=== PATIENT | female | born 1955 | race Caucasian/White ===

== ENCOUNTER 2020-02-05 08:00 | Outpatient (CLI) | payer OTHER, SELFPAY ==
--- NOTE | ~2020-02-05 | XR_ITS ---
XR thoracic spine 3V DATE: 02/05/2020 08:34 INDICATION: Neck, back pain, left shoulder pain TECHNIQUE: AP, lateral and swimmer views COMPARISON: None FINDINGS: Diffuse osteopenia. No fracture or dislocation or bone destruction of the thoracic spine. T he thoracic pedicles are intact. No paraspinal soft tissue thickening. IMPRESSION: Osteopenia Reviewed, dictated and finalized at location A. IMPRESSION: Osteopenia
--- NOTE | ~2020-02-05 | XR_ITS ---
XR cervical spine 4-5V DATE: 02/05/2020 08:34 INDICATION: Neck pain, left shoulder pain. No injury. TECHNIQUE: AP, open-mouth, lateral and swimmer views COMPARISON: None FINDINGS: There is straightening of the cervical spine. There is minimal anterolisthesis at C4-5 and C5-6. C1 and C2 are normally aligned and the odontoid process is intact. No fracture or dislocation or lock ed facet or prevertebral soft tissue swelling. Cervical interspaces are relatively well preserved. IMPRESSION: Straightening Minimal anterolisthesis at C4-5 and C5-6 Reviewed, dictated and finalized at location A.
== END 2020-02-05 08:01 | disposition home or self-care (01) ==
LOC: ANHIMG 08:07
PROVIDERS: PCP Family Medicine; Visit Provider Family Medicine
DX: M54.2 Cervicalgia (principal); M25.512 Pain in left shoulder; M85.88 Other specified disorders of bone density and structure, other site; M53.82 Other specified dorsopathies, cervical region; M43.12 Spondylolisthesis, cervical region
CPT/HCPCS: 72050; 72072

== ENCOUNTER 2022-02-26 16:43 | Outpatient (CLI) | payer BC, SELFPAY ==
--- NOTE | ~2022-02-26 | XR_ITS ---
XR foot LT min 3V 02/26/2022 16:56 Indication: Left foot pain Procedure: 4 views left foot Comparison: No prior studies for comparison. Findings: There is anatomic alignment. Normal mineralization. No fracture or traumatic malalignment. Lisfranc joint is intact. No significant soft tissue abnormality. No foreign bodies. Impression: 1: No significant bone or joint abnormality. Reviewed, dictated and finalized at location A. Impression: 1: No significant bone or joint abnormality.
== END 2022-02-26 16:44 | disposition home or self-care (01) ==
PROVIDERS: PCP Family Medicine; Visit Provider Physician Assistant
DX: M79.672 Pain in left foot (principal)
CPT/HCPCS: 73630

== ENCOUNTER 2022-07-07 11:37 | Emergency (ER) | payer BC, SELFPAY ==
--- NOTE | ~2022-07-07 | XR_ITS ---
EXAMINATION: XR chest 2V 07/07/2022 12:13 INDICATION: Cough PROCEDURE: 2 view chest COMPARISON: No prior studies for comparison. FINDINGS: The lungs are clear. The cardiomediastinal silhouette is within normal limits. There are no pleural effusions. There is no pneumothorax suspected. IMPRESSION: 1: NO ACUTE CARDIOPULMONARY DISEASE. Reviewed, dictated and finalized at location A. T PSYCHIATRIST
[2022-07-07 12:01] VITALS: BP 137/80; PULSE 96; RESP 16; TEMP 36.8; O2SAT 95
--- NOTE | 2022-07-07 12:48 | ED.GENADULT ---
HPI - General Adult General Chief complaint: Upper Respiratory Infection Stated complaint: Cough Source: patient Mode of arrival: ambulatory Limitations: no limitations History of Present Illness HPI narrative: Patient presents for evaluation of sick symptoms since Saturday of this week. Symptoms include nonproductive, cough, wheezing, fever, fatigue, sinus congestion, mild exertional dyspnea and headache. No chills, nausea, vomiting. diarrhea. One of her friends with whom she spends time was recently sick. Pt took two COVID tests at home, both of which were negative. She does not smoke. She contacted her PCP and was given tessalon. She is not sure that made considerable difference in her symptoms. No additional complaints or concerns. Related Data Allergies Allergy/AdvReac Type Severity Reaction Status Date / Time naproxen Allergy Intermediate hives Verified 07/07/22 11:59 Review of Systems Review of Systems: CONSTITUTIONAL: Reports fever and fatigue. Denies chills, or sweats. EYES: Denies visual changes, redness, or discharge. ENT: reports sinus congestion. Denies sore throat or otalgia. CARDIOVASCULAR: Denies chest pain, palpitations, or edema. RESPIRATORY: reports nonproductive cough and mild exertional dyspnea. GASTROINTESTINAL: Denies abdominal pain, nausea, vomiting, or diarrhea. GENITOURINARY: Denies dysuria or hematuria. SKIN: Denies rash or itching. MUSCULOSKELETAL: Denies back pain, joint pain, or myalgia. NEUROLOGIC: Reports headache. Denies numbness, dizziness, or weakness. PSYCHIATRIC: Denies anxiety or depression. [facility] Past Medical History Medical History Breast cancer, left Mixed hyperlipidemia Surgical History Surgical History H/O breast reconstruction History of mastectomy left Family History Family History Father Diabetes mellitus, Onset Age: 58 Hypertension, Onset Age: 58 Family history of cardiovascular disease, Onset Age: 58 Sibling Hypertension Patient's brother is in good health Family history of malignant neoplasm Mother Family history of cardiovascular disease, Onset Age: 76 Cerebrovascular accident, Onset Age: 76 Social History Social History Social History: Smoking status: Never smoker Second hand tobacco smoke exposure: No Alcohol intake: never Substance use: never Substance use type: does not use Gender identity (if verbalized by the patient): Female Sexual Orientation (if Verbalized by the Patient): Straight or Heterosexual Exam Narrative: GENERAL: Well-appearing, well-nourished, and in no acute distress. HEAD: Normocephalic, atraumatic. EYES: PERRLA and EOMI. ENT: Nares clear, no rhinorrhea or epistaxis. Mucous membranes moist. Oropharynx without tonsillar hypertrophy exudate or other lesions. Bilateral TMs pearly villanueva nonbulging NECK: Supple. No adenopathy or masses. No carotid bruits or JVD CHEST: Cough present on exam. Rales and wheezing noted bilaterally in posterior lung gtz. HEART: Regular rate and rhythm. No murmur heard. Normal peripheral pulses. ABDOMEN: Soft, nontender, nondistended, normal active bowel sounds. EXTREMITIES: Normal range of motion. No edema. SKIN: Warm, dry, no rash. NEURO: No focal deficits. Alert and oriented x3. PSYCH: Normal mood and affect. Course Course Emergency Course: This is a 67-year-old female presenting for evaluation of sick symptoms. Her chest x-ray was negative. influenza a positive. Will treat with Tamiflu. Also provide her with a script for albuterol and prednisone to help with wheezing. She should follow up outpatient for further evaluation and treatment go to the ER for worsening symptoms. Patient is in agree
== END 2022-07-07 13:09 | disposition home or self-care (01) ==
PROVIDERS: Emergency Provider Nurse Practitioner; PCP Family Medicine
DX: J10.1 Influenza due to other identified influenza virus with other respiratory manifestations (principal); B34.9 Viral infection, unspecified; E78.2 Mixed hyperlipidemia; Z85.3 Personal history of malignant neoplasm of breast; Z90.12 Acquired absence of left breast and nipple
CPT/HCPCS: 71046; 87804; 99213; G0463

== ENCOUNTER → 2022-07-13 14:50 | Outpatient (CLI) | payer BC, SELFPAY ==
--- NOTE | ~2022-07-13 | DEXA_ITS ---
Bone Density Report Name: BG HARP Age: 67 Sex: Female Ethnicity: White Date of : 1955 Indication: postmenopausal; screening for osteoporosis; Referring Provider: Jr, Dayana Abbott Study: Bone densitometry was performed. Exam Date: July 13, 2022 Accession number: [id number] Bone Density: Region BMD T-score Z-score Classification AP Spine (L1-L4) 0.956 -0.8 1.2 Normal Femoral Neck (Left) 0.710 -1.3 0.4 Osteopenia Total Hip (Left) 0.866 -0.6 0.8 Normal Femoral Neck (Right) 0.649 -1.8 -0.1 Osteopenia Total Hip (Right) 0.837 -0.9 0.5 Normal Total Hip Mean 0.852 -0.8 0.7 Normal World Health Organization criteria for BMD impression classify patients as: Normal (T-score at or above -1.0), Osteopenia (T-score between -1.0 and -2.5), or Osteoporosis (T-score at or below -2.5). 10-year Fracture Risk(1): Major Osteoporotic Fracture 10% Hip Fracture 1.5% Reported Risk Factors: [place] (), Neck BMD=0.649, BMI=25.3 (1) FRAX(R) Version 3.08. Fracture probability calculated for an untreated patient. Fracture probability may be lower if the patient has received treatment. Clinical Information Provided by Patient: Has used the following medications: Vitamin D, Calcium Patient maximum height was 64.1 Menopause Age: 44 Drinks caffeinated beverages Onset of menses at age 15 Number of children 1 Impression: The patient has low bone mass, based on the Right Femoral Neck T-score. The patient has an estimated ten-year risk of hip fracture of 1.5% and an estimated ten-year risk of major fracture of 10%, based on the WHO FRAX algorithm. Discussion: BONE DENSITY IS LOW AT ONE OR MORE SKELETAL SITES. This patient's lowest T-score is low at one or more skeletal sites. It meets the World Health Organization's (WHO) criteria for ?low bone mass? (T-score between -1.0 and -2.5). The patient's 10-year risk of fracture as calculated by FRAX is less than the threshold where pharmacological therapy is recommended by the National Osteoporosis Foundation (NOF). However, all treatment decisions require clinical judgment and consideration of individual patient factors, including patient preferences, comorbidities, previous drug use, risk factors not captured in the FRAX model (e.g., frailty, falls, vitamin D deficiency, increased bone turnover, interval significant decline in bone density) and possible under or overestimation of fracture risk by FRAX. The patient should follow a healthful lifestyle (good nutrition with adequate calcium and vitamin D, and appropriate weight-bearing exercise). Follow-Up: Consider repeating this study in 2 to 3 years to reassess this patient's status, or sooner if there is some new clinical indication. Reported by: VIKKI on 07/13/2022 3:17:00 PM.
== END ==
PROVIDERS: PCP Family Medicine; Visit Provider Obstetrics & Gynecology
DX: Z78.0 Asymptomatic menopausal state (principal); M85.852 Other specified disorders of bone density and structure, left thigh; M85.851 Other specified disorders of bone density and structure, right thigh
CPT/HCPCS: 77080

== ENCOUNTER → 2023-01-18 08:00 | Outpatient (CLI) | payer BC, SELFPAY ==
--- NOTE | ~2023-01-18 | XR_ITS ---
XR lumbar spine 2-3V 01/18/2023 08:15 Indication: Low back pain Procedure: 3 views lumbar spine Comparison: No prior studies for comparison. Findings: Vertebral body heights are maintained. Pedicles intact. Mild dextrocurvature of the lumbar spine. No fracture or traumatic malalignment. No evidence for spondylolisthesis. Mild facet hypertrop hy at L5-S1. Impression: 1: Mild lumbar spondylosis. Reviewed, dictated and finalized at location [] Impression: 1: Mild lumbar spondylosis.
== END ==
PROVIDERS: PCP Family Medicine; Visit Provider Nurse Practitioner Gerontology
DX: R73.9 Hyperglycemia, unspecified (principal); R10.9 Unspecified abdominal pain; M47.896 Other spondylosis, lumbar region
CPT/HCPCS: 72100

== ENCOUNTER 2023-10-16 22:23 | Emergency (ER) | payer BC, SELFPAY ==
[2023-10-16 22:24] VITALS: BP 145/88; PULSE 83; RESP 16; TEMP 36.6; O2SAT 98
[2023-10-16 22:41] VITALS: PULSE 84; RESP 16; O2SAT 96
[2023-10-16 22:44] LABS: Hematocrit 42.8 % (37.0-47.0); Hemoglobin 14.2 g/dL (12.0-15.0); Mean Corpuscular HGB Conc 33.2 g/dl (32-36); Mean Corpuscular Hemoglobin 32.1 pg (26-34); Mean Corpuscular Volume 96.6 fl (80-100); Mean Platelet Volume 12.5 fl (7.4-10.4); Platelet Count Result 243 k/mm3 (150-375); Red Blood Count 4.43 M/mm3 (4.2-5.4); Red Cell Distribution Width 12.6 % (11.5-14.5); White Blood Count 9.3 K/mm3 (4.5-10.0)
[2023-10-16 22:55] LABS: Alanine Aminotransferase 21 U/L (6-35); Albumin Level 4.4 g/dL (3.5-5.1); Alkaline Phosphatase 115 U/L (38-126); Anion Gap 9 mmol/L (8-16); Aspartate Amino Transferase 28 U/L (14-36); Bilirubin,Total 0.5 mg/dL (0.2-1.3); Blood Urea Nitrogen 18 mg/dL (7-17); Calcium 9.4 mg/dL (8.4-10.2); Carbon Dioxide 26 mmol/L (22-30); Chloride 103 mmol/L (98-107); Estimated CRCL calculation 65 ml/min; Estimated Glomerular Filt Rate > 60; Glucose 146 mg/dL (65-110); Lipase 142 U/L (23-300); Potassium 3.5 mmol/L (3.4-5.0); Sodium 138 mmol/L (137-145)
[2023-10-16 23:17] LABS: Influenza A QL RT-PCR Negative (Negative); Influenza B QL RT-PCR Negative (Negative); RSV RNA, RT-PCR Negative (Negative); SARS-CoV-2 RNA PCR Negative (Negative)
[2023-10-16 23:35] LABS: Band Neutrophils Percent 3 % (0-6); Eosinophils Absolute Manual 0.18 K/mm3 (0.02-0.50); Eosinophils Percent Manual 2 % (0-4); Lymphocytes Absolute Manual 2.97 K/mm3 (1.1-4.5); Monocytes Absolute Manual 0.27 K/mm3 (0.1-0.90); Monocytes Percent Manual 3 % (3-9); Neutrophils Absolute Manual 5.85 K/mm3 (1.7-7.2); Neutrophils Percent Manual 60 % (46-73); Platelet Estimate Adequate (Adequate); Total Cells Counted 100
[2023-10-16 23:36] LABS: Anisocytosis 1+; Macrocytosis 1+ (NORMAL); Schistocytes None Seen
[2023-10-16 23:38] VITALS: BP 155/91
[2023-10-16 23:53] LABS: Appearance Urine Clear (Clear); Bacteria Urine None Seen /hpf; Bilirubin Urine Negative (Negative); Blood Urine Negative (Negative); Color Urine Yellow (Yellow); Glucose Urine UA Negative (Negative); Ketones Urine 4+ mg/dL (Negative); Leukocyte Esterase Ur Trace LEU/UL (Negative); Nitrate Urine Negative (Negative); Non Pathogenic Casts 0-2; Protein Urine 1+ mg/dL (Negative); Specific Grav Ur 1.024 (1.001-1.035); Squamous Epithelial Cell Urine None Seen /hpf (Few); WBC Urine 0-5 /hpf (0-3)
[2023-10-17 00:04] LABS: Add Urine Microscopic? YES
[2023-10-17] MEDS: ACETAMINOPHEN 500 MG TABLET 1000 MG PO (00:09)
[2023-10-17] MEDS: SODIUM CHLORIDE 0.9% IV 1,000 ML 999 ML IV CONT (00:09)
[2023-10-17] MEDS: MAG HYDROX/AL HYDROX/SIMETH 30 ML UDC PO (00:10)
[2023-10-17] MEDS: FAMOTIDINE 20 MG/2 ML VIAL IV PUSH (00:12)
[2023-10-17] MEDS: HYDROmorphone HCL INJ (*CRX) 1 MG/ML SYR (00:12)
[2023-10-17 00:34] VITALS: BP 141/82; PULSE 74; RESP 18; O2SAT 100
--- NOTE | 2023-10-17 00:34 | ED.GENADULT ---
HPI - General Adult General Chief complaint: Abdominal Pain Stated complaint: abdominal pain Time Seen by Provider: 10/16/23 22:47 History of Present Illness HPI narrative: this is a 68-year-old female history of gastritis presenting with epigastric pain. Pain is sharp in the epigastric area nonradiating 6/10 intensity has been going on for 2 weeks. She had 1 episode of nausea and vomiting. Patient was seen for this 2 weeks ago and prescribed Protonix. However she stopped taking the Protonix 1 week ago because of constipation. And her pain came back. She is post be taking her to Pepcid but has not been taking it. She also takes a significant amount Motrin for her left shoulder. Related Data Allergies Allergy/AdvReac Type Severity Reaction Status Date / Time naproxen Allergy Intermediate hives Verified 10/16/23 22:41 [facility] Past Medical History Medical History Abdominal pain Breast cancer, left Hyperglycemia Left foot pain Low back pain Mixed hyperlipidemia Pes anserinus bursitis of left knee Prediabetes Surgical History Surgical History H/O breast reconstruction History of mastectomy left Family History Family History Father Diabetes mellitus, Onset Age: 58 Hypertension, Onset Age: 58 Family history of cardiovascular disease, Onset Age: 58 Sibling Hypertension Patient's brother is in good health Family history of malignant neoplasm Mother Family history of cardiovascular disease, Onset Age: 76 Cerebrovascular accident, Onset Age: 76 Social History Social History Social History: Smoking status: Never smoker Second hand tobacco smoke exposure: No Alcohol intake: never Substance use: never Substance use type: does not use Do You Feel Safe in your Home?: Yes Lack of Transportation: No Lack of Food: Never True Current Housing: I Have Housing Concerned About Future Housing: No Difficulty Paying Gas/Electric Bills: No Difficulty Paying for Meds: No Currently Unemployed: No Education: Don't Know Difficulty w/ Childcare or Family Care: No Living arrangements: with family Occupation/Education: occupation Gender identity (if verbalized by the patient): Female Sexual Orientation (if Verbalized by the Patient): Straight or Heterosexual Exam Narrative: APPEARANCE: No apparent distress. Head: atraumatic. EYES: EOMI, NOSE: Atraumatic NECK: Trachea midline RESPIRATORY: No increased rate of breathing CARDIOVASCULAR: RRR, ABDOMINAL: tenderness to palpation in the epigastric area, no guarding or rebound MUSCULOSKELETAl: No obvious deformities NEURO: Alert. Moving 4/4 extremities SKIN:: Warm, dry. Normal color PSYCHIATRIC: Normal affect Course Vital Signs Vital signs: Vital Signs Temperature 97.9 F 10/16/23 22:24 Pulse Rate 83 10/16/23 22:24 Respiratory Rate 16 10/16/23 22:24 Blood Pressure 145/88 H 10/16/23 22:24 Pulse Oximetry 98 10/16/23 22:24 Oxygen Delivery Room Air 10/16/23 22:24 Temperature 97.9 F 10/16/23 22:24 Pulse Rate 74 10/17/23 00:34 Respiratory Rate 18 10/17/23 00:34 Blood Pressure 141/82 H 10/17/23 00:34 Pulse Oximetry 100 10/17/23 00:34 Oxygen Delivery Room Air 10/16/23 22:24 Medical Decision Making [facility] Narrative Medical decision making narrative: -Course: 68-year-old female with history of gastritis and medication noncompliance presenting with epigastric pain. Vital signs normal. Physical exam showed tenderness in the epigastric area. Laboratory studies all within normal limits. Patient treated for gastritis and discharged primary care follow-up. Given return precautions -DDX includes but is not limited to: gastritis, GERD peptic ulce
[2023-10-17 01:10] VITALS: BP 118/85; PULSE 88; RESP 16; O2SAT 99
== END 2023-10-17 01:10 | disposition home or self-care (01) ==
PROVIDERS: Emergency Provider Emergency Medicine; PCP Family Medicine
DX: K29.70 Gastritis, unspecified, without bleeding (principal); Z20.822 Contact with and (suspected) exposure to COVID-19; Z85.3 Personal history of malignant neoplasm of breast
CPT/HCPCS: 36415; 80053; 83690; 85025; 87637; 96361; 96374; 99284; A9270; J1170; J7030

== ENCOUNTER 2023-10-19 22:02 | Observation (INO) | payer BC, SELFPAY ==
--- NOTE | ~2023-10-19 | MR_ITS ---
EXAMINATION: MR MRCP wo/w con/w 3D wo ind DATE: 10/20/2023 15:26 INDICATION: Pancreatic mass TECHNIQUE: Magnetic resonance imaging (MRI) of the abdomen was performed without and with 14 mL Multi sandra intravenous contrast. Sequences included coronal T2-weighted SS-FSE, coronal T2-weighted FS SS- FSE, coronal T2-weighted FS FIESTA, axial T2-weighted FS FIESTA, axial T2-weighted FIESTA, sagittal T 2-weighted SS-FSE, axial T1-weighted dual-echo FSPGR, axial T2-weighted SS-FSE, axial T1-weighted LAV A, axial T2-weighted STIR FSE. Thick-slab T2-weighted FRFSE-XL images were obtained for magnetic reso nance cholangiopancreatography (MRCP). Rotating maximum intensity projection 3-D reconstructions of t he volumetric data were created by the technologist. Postcontrast sequences included a time course of axial T1-weighted LAVA. COMPARISON: CT dated 10/20/2023 FINDINGS: ABDOMEN MRI: Heart size is normal. No pericardial or pleural effusion. Status post right mastectomy and reconstruc tion with right breast implant. Cyst a few subcentimeter hepatic cysts the larger 4.1 cm cyst in the left hepatic lobe. Gallbladder, spleen, bilateral adrenal glands and right kidney are normal. 4.6 sim ilar exophytic cyst at the lower pole of the left kidney. 4.6 x 3.4 cm hypoenhancing mass at the body of the pancreas with prominent upstream dilation of the pancreatic duct at the tail of the pancreas and associated moderate atrophy of the pancreatic tail. There is a 2.6 x 1.9 cm cystic component with in the anterior portion of the mass which appears to communicate with 3 separate loculated fluid juani ections, 2 of which are centrally fat between the pancreas and the distal stomach which measure 2.4 x 1.7 cm and 1.7 x 1.2 cm and a third which appears to extend within the wall of the gastric antrum wh ich measures 3.8 x 2.6 x 2.6 cm. There appears be a second point of contact between the mass and the wall of the lesser curvature of the more proximal body of the stomach with a fourth 1.5 x 1.5 cm intr amural fluid collection which internally bulges the underlying gastric mucosa. There is no significan t inflammatory stranding surrounding the pancreas to suggest ongoing acute pancreatitis although this is a clinical diagnosis. Appearance most suggestive of contained pancreatic leak with pseudocysts se condary to a likely malignant pancreatic mass which could be either primary pancreatic cancer or meta stases from known breast cancer. Small diverticulum arising from the third portion of the duodenum. T he visualized bowels including the appendix are otherwise unremarkable. No pathologically enlarged ab dominal or upper pelvic lymphadenopathy. Bones are unremarkable with normal marrow signal throughout. ABDOMEN MRCP: Normal common bile duct which measures up to 5 mm in maximal diameter tapering smoothly distally with no choledocholithiasis or evident mucosal irregularities. Normal intrahepatic biliary tree. The main pancreatic duct appears normal at the head and neck of the pancreas. The duct is not visualized in t he region of the mass of the body of the pancreas hemorrhage is likely obstructed with irregular appe aring dilated more proximal duct at the pancreatic tail. IMPRESSION: 1. 4.6 x 3.4 cm mass at the body the pancreas which could be either primary pancreatic cancer or pote ntially metastatic disease related to known breast cancer although there are no other evident metasta tic lesions identified. 2. Secondary obstruction of the main pancreatic duct and likely pancreatic leak with pseudocyst forma tion extending to involve the 2 separate regions of the adjacent proximal and distal gastric wall. 3. Status post right mastectomy reconstruction with right breast implant for reported breast cancer. Reviewed, dictated and finalized at location A. Electronically signed by Jose Flanagan M.D. on
--- NOTE | ~2023-10-19 | CT_ITS ---
EXAMINATION: CT abdomen pelvis w con DATE: 10/20/2023 00:48 INDICATION: Abdominal pain TECHNIQUE: Computed tomography (CT) of the abdomen and pelvis was performed with 100 mL Omnipaque-350 intravenous contrast. Automated exposure control and iterative reconstruction technique were employe d. The dose-length product was 301.00 mGy-cm. COMPARISON: None FINDINGS: Calcite nodules at the left lung base consistent with old granulomatous disease. Heart size normal. N o pericardial or pleural effusion. Likely prior right mastectomy with implant reconstruction. Small s liding-type hiatal hernia. A few subcentimeter low-attenuation hepatic cysts with larger 4.3 cm cyst in the left hepatic lobe. Gallbladder, spleen, bilateral adrenal glands and right kidney are normal. 4.6 cm cyst at the lower pole of the left kidney. There is an ill-defined approximately 4.6 x 3.3 cm masslike region with small region of cystic transformation at the body of the pancreas. There is prom inent dilation of the upstream main pancreatic duct at the tail of the pancreas. There are small locu lated peripherally enhancing peripancreatic fluid collections along the anterior margin of the body o f the pancreas likely representing pancreatic pseudocysts. The largest which measures 2.9 x 2.1 cm ap pears to extend into the wall of the gastric antrum. Bowels are unremarkable with no obstruction. Tho dder, uterus and right adnexa are normal. There are prominent enhancing gonadal veins at the left adn exa which could be seen with pelvic vascular congestion syndrome. No free intraperitoneal gas or flui d. No pathologically enlarged abdominal or pelvic lymphadenopathy. Bones are unremarkable. IMPRESSION: 1. The partially 4.6 x 3.3 cm masslike region in the body of the pancreas with dilation of the more u pstream main pancreatic duct at the tail of the pancreas which raises concern for pancreatic malignan cy. Interpretation however is complicated by superimposed findings of likely subacute pancreatitis wi th a couple small extrapancreatic peripherally enhancing or loculated likely pancreatic pseudocysts v ersus abscesses. Differential for the masslike enlargement would include things of ongoing acute panc reatitis. 2. Small sliding-type hiatal hernia. Reviewed, dictated and finalized at location A. IMPRESSION: 1. The partially 4.6 x 3.3 cm masslike region in the body of the pancreas with dilation of the more upstream main pancreatic duct at the tail of the pancreas which raises concern for pancreatic malignancy. Interpretation however is compl icated by superimposed findings of likely subacute pancreatitis with a couple s mall extrapancreatic peripherally enhancing or loculated likely pancreatic pseu docysts versus abscesses. Differential for the masslike enlargement would inclu de things of ongoing acute pancreatitis. 2. Small sliding-type hiatal hernia.
[2023-10-19 22:34] VITALS: BP 173/83; PULSE 75; RESP 14; TEMP 36.4; O2SAT 100
[2023-10-19 22:56] LABS: Basophils Percent Auto 0.2 % (0.2-1.2); Eosinophils Percent Auto 0.5 % (0-4.4); Hematocrit 42.2 % (37.0-47.0); Hemoglobin 14.3 g/dL (12.0-15.0); Immature Granulocyte Absolute 0.01 K/mm3 (0.00-0.031); Immature Granulocyte Percent A 0.1 % (0-0.5); Lymphocytes Absolute Auto 1.11 K/mm3 (0.9-3.2); Lymphocytes Percent Auto 13.8 % (18.3-44.2); Mean Corpuscular HGB Conc 33.9 g/dl (32-36); Mean Corpuscular Hemoglobin 32.1 pg (26-34); Mean Corpuscular Volume 94.8 fl (80-100); Mean Platelet Volume 12.2 fl (7.4-10.4); Monocytes Absolute Auto 0.4 K/mm3 (0.1-0.6); Monocytes Percent Auto 4.3 % (2.6-8.5); Neutrophils Absolute Auto 6.5 K/mm3 (1.3-6.7); Neutrophils Percent Auto 81.1 % (45.5-73.1); Platelet Count Result 231 k/mm3 (150-375); Red Blood Count 4.45 M/mm3 (4.2-5.4); Red Cell Distribution Width 12.6 % (11.5-14.5); White Blood Count 8.1 K/mm3 (4.5-10.0)
[2023-10-19 23:12] LABS: Alanine Aminotransferase 20 U/L (6-35); Albumin Level 4.5 g/dL (3.5-5.1); Alkaline Phosphatase 113 U/L (38-126); Anion Gap 11 mmol/L (8-16); Aspartate Amino Transferase 31 U/L (14-36); Bilirubin,Total 0.6 mg/dL (0.2-1.3); Blood Urea Nitrogen 16 mg/dL (7-17); Calcium 9.6 mg/dL (8.4-10.2); Carbon Dioxide 26 mmol/L (22-30); Chloride 101 mmol/L (98-107); Estimated CRCL calculation 76 ml/min; Estimated Glomerular Filt Rate > 60; Glucose 129 mg/dL (65-110); Lipase 75 U/L (23-300); Potassium 3.8 mmol/L (3.4-5.0); Sodium 138 mmol/L (137-145)
[2023-10-20] VITALS (13 sets, daily range): BP systolic 144–155; BP diastolic 71–83; PULSE 71–83; RESP 12–22; TEMP 36.5–36.9; O2SAT 94–100; BMI 26.0
[2023-10-20 00:12] LABS: Appearance Urine Clear (Clear); Bacteria Urine None Seen /hpf; Bilirubin Urine Negative (Negative); Blood Urine Negative (Negative); Color Urine Yellow (Yellow); Glucose Urine UA Negative (Negative); Ketones Urine 4+ mg/dL (Negative); Leukocyte Esterase Ur Trace LEU/UL (Negative); Nitrate Urine Negative (Negative); Non Pathogenic Casts 0-2; Protein Urine Trace mg/dL (Negative); RBC Urine 0-2 /hpf (0-2); Specific Grav Ur 1.022 (1.001-1.035); Squamous Epithelial Cell Urine Few /hpf (Few); pH Urine 6.5 (5.0-9.0)
[2023-10-20 00:16] LABS: Add Urine Microscopic? YES
--- NOTE | 2023-10-20 00:40 | ED.GENADULT ---
HPI - General Adult General Chief complaint: Nausea/Vomiting/Diarrhea Stated complaint: ABDOMEN PAIN Time Seen by Provider: 10/20/23 00:12 History of Present Illness HPI narrative: patient 68-year-old female who presents emergency department with chief complaint of abdominal pain. Patient reports she was seen in the emergency department on Saturday and was diagnosed with gastritis the patient states this evening her pain started getting worse and reports that she is not able to get the pain under control. The patient reports she had 2 episodes of vomiting patient denies diarrhea. Related Data Allergies Allergy/AdvReac Type Severity Reaction Status Date / Time naproxen Allergy Intermediate hives Verified 10/20/23 00:07 Review of Systems Review of Systems: A 10 system review of systems was completed on the patient and is negative except for what is stated in the HPI. Nursing and ancillary documentation was reviewed. [facility] Past Medical History Medical History Abdominal pain Breast cancer, left Hyperglycemia Left foot pain Low back pain Mixed hyperlipidemia Pes anserinus bursitis of left knee Prediabetes Surgical History Surgical History H/O breast reconstruction History of mastectomy left Family History Family History Father Diabetes mellitus, Onset Age: 58 Hypertension, Onset Age: 58 Family history of cardiovascular disease, Onset Age: 58 Sibling Hypertension Patient's brother is in good health Family history of malignant neoplasm Mother Family history of cardiovascular disease, Onset Age: 76 Cerebrovascular accident, Onset Age: 76 Social History Social History Social History: Smoking status: Never smoker Second hand tobacco smoke exposure: No Alcohol intake: never Substance use: never Substance use type: does not use Do You Feel Safe in your Home?: Yes Lack of Transportation: No Lack of Food: Never True Current Housing: I Have Housing Concerned About Future Housing: No Difficulty Paying Gas/Electric Bills: No Difficulty Paying for Meds: No Currently Unemployed: No Education: Don't Know Difficulty w/ Childcare or Family Care: No Living arrangements: with family Occupation/Education: occupation Gender identity (if verbalized by the patient): Female Sexual Orientation (if Verbalized by the Patient): Straight or Heterosexual Exam Narrative: GENERAL: Well-appearing, well-nourished, and in no acute distress. HEAD: Normocephalic, atraumatic. EYES: PERRLA and EOMI. ENT: Nares clear, no rhinorrhea or epistaxis. Mucous membranes moist. NECK: Supple. CHEST: Clear to auscultation. No respiratory distress. HEART: Regular rate and rhythm. No murmur heard. Normal peripheral pulses. ABDOMEN: Soft, nontender, nondistended, normal active bowel sounds. EXTREMITIES: Normal range of motion. No edema. SKIN: Warm, dry, no rash. NEURO: No focal deficits. Alert and oriented x3. PSYCH: Normal mood and affect. Course Vital Signs Vital signs: Vital Signs Temperature 36.4 C L 10/19/23 22:34 Pulse Rate 75 10/19/23 22:34 Respiratory Rate 14 10/19/23 22:34 Blood Pressure 173/83 H 10/19/23 22:34 Pulse Oximetry 100 10/19/23 22:34 Oxygen Delivery Room Air 10/19/23 22:34 Temperature 36.4 C L 10/19/23 22:34 Pulse Rate 77 10/20/23 01:31 Respiratory Rate 17 10/20/23 01:31 Blood Pressure 144/77 H 10/20/23 01:31 Pulse Oximetry 96 10/20/23 01:31 Oxygen Delivery Room Air 10/19/23 22:34 Medical Decision Making [facility] Narrative Medical decision making narrative: Differential diagnosis includes gastritis, cholecystitis, choledocholithiasis, knight
[2023-10-20] MEDS: ONDANSETRON INJ 4 MG/2 ML VIAL IV PUSH (00:52)
[2023-10-20] MEDS: SODIUM CHLORIDE 0.9% IV 1,000 ML 999 ML IV CONT ×2 (00:52→05:59)
[2023-10-20] MEDS: MORPHINE SULFATE (*CRX) 4 MG/ML INJ IV PUSH (00:52)
--- NOTE | 2023-10-20 06:58 | ADMGEN ---
This patient, Shira Zaman, was admitted to Medical Room 244-. Patient/family oriented to hospital policies and general routines including ID bracelet, bed and alarms, visiting hours, pain management, procedures, bathroom and other care routines, personal items, smoking policy, room service/diet, and visiting hours. Information on how to activate the Rapid Response Team has been discussed. Patient/Family are encouraged to report perceived risks to care and to ask questions if they do not understand what they are told or what they should do.
[2023-10-20] MEDS: SODIUM CHLORIDE 0.9% IV 1,000 ML 150 ML IV CONT ×3 (07:52→21:46)
--- NOTE | 2023-10-20 13:13 | PM.IMHP ---
H&P: HPI History of Present Illness Date/Time: 10/20/23 13:13 Chief Complaint: She is a pleasant lady who was diagnosed with gastritis 2 weeks ago and prescribed Protonix at PCPs office. She admits to taking Motrin with a regular basis for her shoulder pain. She took Protonix for 1 week then stopped because of constipation. She was supposed to take prilosec but she did not start it. She came to the ER couple days ago, was treated and discharged. She came back again early today with worsening gastric pains associated with nausea and vomiting. Workup was done with CT scan which showed numerous pancreatic cysts and finding acute/subacute pancreatitis versus pseudocyst. She is being placed under observation for treatment of her gastritis, close monitoring, GI evaluation and further workup. Review of Systems Review of Systems: 14 systems were reviewed with pertinent positives and negatives per HPI. Except as documented in the HPI/progress notes, all other systems were reviewed and are negative. All systems reviewed & are unremarkable except as noted in HPI and below PMFSH Past Medical History Medical History Abdominal pain Breast cancer, left Hyperglycemia Left foot pain Low back pain Mixed hyperlipidemia Pes anserinus bursitis of left knee Prediabetes Surgical History Surgical History H/O breast reconstruction History of mastectomy left Family History Family History Father Diabetes mellitus, Onset Age: 58 Hypertension, Onset Age: 58 Family history of cardiovascular disease, Onset Age: 58 Sibling Hypertension Patient's brother is in good health Family history of malignant neoplasm Mother Family history of cardiovascular disease, Onset Age: 76 Cerebrovascular accident, Onset Age: 76 Social History Social History Social History: Smoking status: Never smoker Second hand tobacco smoke exposure: No Alcohol intake: never Substance use: never Substance use type: does not use Do You Feel Safe in your Home?: Yes Lack of Transportation: No Lack of Food: Never True Current Housing: I Have Housing Concerned About Future Housing: No Difficulty Paying Gas/Electric Bills: No Difficulty Paying for Meds: No Currently Unemployed: No Education: Don't Know Difficulty w/ Childcare or Family Care: No Living arrangements: with family Occupation/Education: occupation Gender identity (if verbalized by the patient): Female Sexual Orientation (if Verbalized by the Patient): Straight or Heterosexual Spiritual care concerns: No Meds Home Medications and Allergies Home Medications Medication Instructions Recorded Confirmed Type famotidine 40 mg tablet 40 mg PO QHS #90 tabs 10/14/23 10/20/23 Rx rosuvastatin 5 mg tablet 5 mg PO QHS 10/20/23 10/20/23 History Allergies Allergy/AdvReac Type Severity Reaction Status Date / Time naproxen Allergy Intermediate hives Verified 10/20/23 00:07 Vital Signs Vital Signs - 24 hr 10/19/23 22:34 10/20/23 00:57 10/20/23 01:01 Temperature 36.4 C L Pulse Rate 75 81 76 Respiratory Rate 14 16 12 Blood Pressure 173/83 H 155/83 H 152/78 H Pulse Oximetry 100 100 99 Oxygen Delivery Room Air 10/20/23 01:16 10/20/23 01:31 10/20/23 01:32 Temperature Pulse Rate 79 77 76 Respiratory Rate 14 17 13 Blood Pressure 146/73 H 144/77 H Pulse Oximetry 98 96 99 Oxygen Delivery 10/20/23 03:17 10/20/23 03:43 10/20/23 03:45 Temperature Pulse Rate 83 81 78 Respiratory Rate 16 16 14 Blood Pressure Pulse Oximetry 98 98 100 Oxygen Delivery 10/20/23 04:00 10/20/23 06:56 10/20/23 08:00 Temperature 36.7 C Pulse Rate 80 78 Respiratory Rate 22 H 18 Blood Pressure 152/83 H Pulse Oximet
--- NOTE | 2023-10-20 14:18 | WPDGICN ---
Assessment and Plan Assessment and plan (1) Mass of pancreas: Code(s): K86.89 - Other specified diseases of pancreas Status: Acute Assessment and Plan: no previous history of pancreatitis and she does not drink alcohol normal liver enzymes and lipase concerning that lesion could be malignant will get MRI pancreas and also refer for EUS pancreas to [facility]- this was discussed with patient also get CA 19-9 (2) Abdominal pain, acute, epigastric: Code(s): R10.13 - Epigastric pain Status: Acute Assessment and Plan: probably from CT scan findings monitor ok to start liquid diet (3) Abnormal computed tomography angiography (CTA) of abdomen and pelvis: Code(s): R93.5 - Abnormal findings on diagnostic imaging of other abdominal regions, including retroperitoneum Status: Acute (4) Dyspepsia: Code(s): R10.13 - Epigastric pain Status: Acute (5) Nausea and vomiting in adult: Code(s): R11.2 - Nausea with vomiting, unspecified Status: Acute GI Consult Note Consult date/time: 10/20/23 14:18 Reason for consult: abnormal pancreas by ct HPI: Shira Zaman is a 68 year old female with history of?breast ca more than 15 years ago, s/p? mastectomy with chemo, reconstruction.?She has been having abdominal discomfort/dyspepsia with bloating for last 3 weeks (early September had Covid + and used Paxlovid), then her PCP prescribed ppi but then had constipation, recently also nausea- she came to ER and sent home but worsened symptoms, [facility]. She had CT scan that was reviewed and showed 4.6 x 3.3 cm masslike region in the body of the pancreas with dilation of the more upstream main pancreatic duct at the tail of the pancreas which raises concern for pancreatic malignancy. Interpretation however is complicated by superimposed findings of likely subacute pancreatitis with a couple small extrapancreatic peripherally enhancing or loculated likely pancreatic pseudocysts versus abscesses. Differential for the masslike enlargement would include things of ongoing acute pancreatitis.. Small sliding-type hiatal hernia. Her liver enzymes and lipase normal, never had pancreatitis and does not drink alcohol. Review of Systems Constitutional: Constitutional: Denies chills Eyes: Eyes: Denies blurry vision ENT: Reports Normal hearing present Cardiovascular: Cardiovascular: Denies chest pain Respiratory: Respiratory: Denies cough Gastrointestinal: Gastrointestinal: Reports abdominal pain, Reports nausea and Reports vomiting Genitourinary: Genitourinary: Denies urinary urgency Musculoskeletal: Musculoskeletal: Denies neck pain Integumentary/Breasts: Skin/Breast: Denies rash Neurologic: Denies Abnormal speech present Psychiatric: Psychiatric: Denies behavioral changes [facility] Past Medical History Medical History (Updated 10/20/23 @ 14:24 by Marc Jeter MD) Abdominal pain Breast cancer, left Dyspepsia Hyperglycemia Left foot pain Low back pain Mass of pancreas Mixed hyperlipidemia Nausea and vomiting in adult Pes anserinus bursitis of left knee Prediabetes Surgical History Surgical History H/O breast reconstruction History of mastectomy left Family History Family History Father Diabetes mellitus, Onset Age: 58 Hypertension, Onset Age: 58 Family history of cardiovascular disease, Onset Age: 58 Sibling Hypertension Patient's brother is in good health Family history of malignant neoplasm Mother Family history of cardiovascular disease, Onset Age: 76 Cerebrovascular accident, Onset Age: 76 Social History Social History Social History: Smoking status: Never smoker Second hand tobacco smoke exposure: No Alcohol intake: never Substan
[2023-10-20] MEDS: ROSUVASTATIN 5 MG TABLET PO (20:36)
[2023-10-20] MEDS: PANTOPRAZOLE 40 MG TABLET PO (20:36)
[2023-10-20] MEDS: ACETAMINOPHEN 325 MG TABLET 650 MG PO (20:39)
[2023-10-21] MEDS: ACETAMINOPHEN 325 MG TABLET 650 MG PO ×2 (02:47→16:57)
[2023-10-21] MEDS: SODIUM CHLORIDE 0.9% IV 1,000 ML 150 ML IV CONT (04:28)
[2023-10-21 05:35] LABS: Anion Gap 8 mmol/L (8-16); Blood Urea Nitrogen 7 mg/dL (7-17); Calcium 8.3 mg/dL (8.4-10.2); Carbon Dioxide 20 mmol/L (22-30); Chloride 109 mmol/L (98-107); Estimated CRCL calculation 76 ml/min; Estimated Glomerular Filt Rate > 60; Glucose 68 mg/dL (65-110); Potassium 3.6 mmol/L (3.4-5.0); Sodium 137 mmol/L (137-145)
[2023-10-21 06:00] VITALS: BP 125/68; PULSE 67; RESP 18; TEMP 36.9; O2SAT 97
[2023-10-21] MEDS: MAG HYDROX/AL HYDROX/SIMETH 30 ML UDC PO (07:31)
[2023-10-21 07:33] LABS: Basophils Percent Auto 0.6 % (0.2-1.2); Eosinophils Percent Auto 0.4 % (0-4.4); Hematocrit 36.3 % (37.0-47.0); Immature Granulocyte Absolute 0.02 K/mm3 (0.00-0.031); Immature Granulocyte Percent A 0.3 % (0-0.5); Lymphocytes Absolute Auto 1.44 K/mm3 (0.9-3.2); Lymphocytes Percent Auto 19.8 % (18.3-44.2); Mean Corpuscular HGB Conc 33.1 g/dl (32-36); Mean Corpuscular Hemoglobin 32.3 pg (26-34); Mean Corpuscular Volume 97.6 fl (80-100); Monocytes Absolute Auto 0.6 K/mm3 (0.1-0.6); Monocytes Percent Auto 7.6 % (2.6-8.5); Neutrophils Absolute Auto 5.2 K/mm3 (1.3-6.7); Neutrophils Percent Auto 71.3 % (45.5-73.1); Platelet Count Result 188 k/mm3 (150-375); Red Blood Count 3.72 M/mm3 (4.2-5.4); Red Cell Distribution Width 12.7 % (11.5-14.5); White Blood Count 7.3 K/mm3 (4.5-10.0)
[2023-10-21] MEDS: PANTOPRAZOLE 40 MG TABLET PO ×2 (08:55→20:07)
[2023-10-21 11:54] VITALS: BMI 26.0
--- NOTE | 2023-10-21 12:15 | WPDGIPROGNO ---
Progress Note: A&P Assessment and Plan (1) Mass of pancreas: Code(s): K86.89 - Other specified diseases of pancreas Status: Acute Assessment and Plan: it seems that could be pancreatic malignancy, another differential is from breast cancer (less likely) I recommend transfer to tertiary hospital for EUS and also may need ercp (apparently PD leak with evolving pseudocyst) I discussed findings with patient and RN. She is agreeable to transfer, will contact hospitalist to arrange transfer (2) Epigastric pain: Code(s): R10.13 - Epigastric pain Status: Acute Assessment and Plan: ?MRCP reviewed 4.6 x 3.4 cm mass at the body the pancreas which could be either primary pancreatic cancer or potentially metastatic disease related to known breast cancer although there are no other evident metastatic lesions identified. Secondary obstruction of the main pancreatic duct and likely pancreatic leak with pseudocyst formation extending to involve the 2 separate regions of the adjacent proximal and distal gastric wall. (3) Nausea and vomiting in adult: Code(s): R11.2 - Nausea with vomiting, unspecified Status: Acute (4) Abnormal computed tomography angiography (CTA) of abdomen and pelvis: Code(s): R93.5 - Abnormal findings on diagnostic imaging of other abdominal regions, including retroperitoneum Status: Acute (5) Pancreatic duct leak: Code(s): K86.89 - Other specified diseases of pancreas Status: Acute Subjective Date/time seen: 10/21/23 12:15 Interval history: still similar abdominal discomfort, also fullness after eating Review of Systems Review of Systems: All systems reviewed & are unremarkable except as noted in HPI and below Exam Const: General: comfortable and no acute distress HENMT: Face/Nose/Sinus: Normal nares present Eyes: General: appearance normal, both eyes and all related structures Neck: Neck: supple Resp: Auscultation: clear to auscultation bilaterally Cardio: Rate: regular rate Rhythm: regular rhythm GI: Inspection: non-distended GI Palp: Yes Soft to palpation and Yes Tenderness to palpation present (GI) (mild epigastric pain, no rebound) Auscultation: normal bowel sounds Skin: General skin exam: normal color Neuro: Speech: normal speech Motor exam (neuro): 5/5 motor strength present throughout Extrem: General: normal to inspection Psych: Mental Status: mental status grossly normal Objective Data Vital Signs Vital Signs: Vital Signs - 24 hr 10/20/23 13:51 10/20/23 14:00 10/20/23 19:36 Temperature 97.7 F 98.4 F Pulse Rate 71 74 Respiratory Rate 16 18 Blood Pressure 144/74 H 148/71 H Pulse Oximetry 94 97 95 Oxygen Delivery Room Air 10/20/23 20:42 10/21/23 06:00 Temperature 98.5 F Pulse Rate 67 Respiratory Rate 18 Blood Pressure 125/68 Pulse Oximetry 97 Oxygen Delivery Room Air Intake/Output Intake/Output: Intake & Output 10/18/23 10/19/23 10/20/23 10/21/23 23:59 23:59 23:59 23:59 Intake Total 3110 1000 Balance 3110 1000 Meds/Results Medications: Active Medications Generic Name Dose Route Start Last Admin Trade Name Freq PRN Reason Stop Dose Admin Acetaminophen 650 mg 10/20/23 13:32 10/21/23 02:47 Acetaminophen 325 Mg Tablet PO 650 mg Q4H PRN Administration Mild Pain (1-3) or Fever Al Hydrox/Mg Hydrox/Simethicone 30 ml 10/20/23 13:32 10/21/23 07:31 Mag Hydrox/Al Hydrox/Simeth 30 Ml Udc PO 30 ml QID PRN Administration Dyspepsia Sodium Chloride 1,000 mls @ 150 mls/hr 10/20/23 05:50 10/21/23 04:28 Normal Saline Iv IV CONT 150 mls/hr .Q6H40M KATHLEEN Administration Morphine Sulfate 2 mg 10/20/23 05:48 Morphine Sulfate (*Crx) 2 Mg/Ml Inj IV PUSH Q2H PRN Pain Rated 7-10 Ondansetron HCl 4 mg 10/20/23 05:48 Ondansetron Inj 4 Mg/2 Ml Vial IV PUSH Q4H PRN Nausea Pantoprazole Sodium 40 mg 10/20/23 21:00 03
--- NOTE | 2023-10-21 16:01 | PM.TDS ---
Transfer Discharge Sum: Prov Provider Date of admission: 10/20/23 05:49 Primary care physician: Lauren Frye MD Admitting clinician: Soledad Duran DO Attending physician on admission: Gibran Bang Consults: 10/20/23 05:49 Consult to Physician Routine Comment: Spoke to . @ [phone] (,) Consulting Provider: [facility] call center receptionist/MD group to consult: GI Reason for consultation: pancreatic cyst, possible pancreatitis Has provider been notified: Yes Attending physician on discharge: Gibran Bang Discharging clinician: Gibran Bang Anticipated date of transfer: 10/21/23 Receiving physician/facility: Patient is being transferred to the be admitted under Dr. Andre, Hospitalist Physician at [facility] in [place], [place] to be followed up by Interventional [facility], Dr. Rhoades for further GI intervention with EUS and possible ERCP to assess pancreatic duct and GI management. Patient condition upon transfer : Guarded yet stable.. DS: Admitting Diagnosis Discharge Date 10/21/2023: Admitting Diagnosis (1) Abdominal pain, acute, epigastric: ?Code(s): R10.13 - Epigastric pain ?Status:?Acute (2) Pancreas cyst: ?Code(s): K86.2 - Cyst of pancreas ?Status:?Acute (3) GERD (gastroesophageal reflux disease): ?Qualifiers: ?Esophagitis presence:?without esophagitis? Qualified Code(s):?K21.9 - Gastro-esophageal reflux disease without esophagitis ?Code(s): K21.9 - Gastro-esophageal reflux disease without esophagitis ?Status:?Acute DS: Discharge Diagnosis Discharge Diagnosis (1) Abnormal magnetic resonance cholangiopancreatography (MRCP): Code(s): R93.3 - Abnormal findings on diagnostic imaging of other parts of digestive tract Status: Acute (2) Pancreatic duct leak: Code(s): K86.89 - Other specified diseases of pancreas Status: Acute (3) Epigastric pain: Code(s): R10.13 - Epigastric pain Status: Acute (4) Nausea and vomiting in adult: Code(s): R11.2 - Nausea with vomiting, unspecified Status: Acute (5) Dyspepsia: Code(s): R10.13 - Epigastric pain Status: Acute (6) Mass of pancreas: Code(s): K86.89 - Other specified diseases of pancreas Status: Acute (7) Abdominal pain, acute, epigastric: Code(s): R10.13 - Epigastric pain Status: Acute (8) Pancreas cyst: Code(s): K86.2 - Cyst of pancreas Status: Acute (9) GERD (gastroesophageal reflux disease): Qualifiers: Esophagitis presence: without esophagitis Qualified Code(s): K21.9 - Gastro-esophageal reflux disease without esophagitis Code(s): K21.9 - Gastro-esophageal reflux disease without esophagitis Status: Acute (10) Varicose vein of leg: Code(s): I83.90 - Asymptomatic varicose veins of unspecified lower extremity Status: Acute (11) Mixed hyperlipidemia: Code(s): E78.2 - Mixed hyperlipidemia Status: Acute (12) Abnormal CT of the abdomen: Code(s): R93.5 - Abnormal findings on diagnostic imaging of other abdominal regions, including retroperitoneum Status: Acute Transfer Discharge Sum: Med Medications Active and Home Medications: Home Medications famotidine 40 mg tablet 40 mg PO QHS #90 tabs 10/14/23 [Rx Confirmed 10/20/23] rosuvastatin 5 mg tablet 5 mg PO QHS 10/20/23 [History Confirmed 10/20/23] Active Medications Acetaminophen (Acetaminophen 325 Mg Tablet) 650 mg PO Q4H PRN PRN Reason: Mild Pain (1-3) or Fever Last Admin: 10/21/23 02:47 Dose: 650 mg Al Hydrox/Mg Hydrox/Simethicone (Mag Hydrox/Al Hydrox/Simeth 30 Ml Udc) 30 ml PO QID PRN PRN Reason: Dyspepsia Last Admin: 10/21/23 07:31 Dose: 30 ml Sodium Chloride (Normal Saline Iv) 1,000 mls @ 150 mls/hr IV CONT .Q6H40M KATHLEEN Last Admin: 10/21/23 04:28 Dose: 150 mls/hr Morphine Sulfate (Morphine Sulfate (*Crx) 2 Mg/Ml
[2023-10-21 16:09] VITALS: BP 149/71; PULSE 75; RESP 12; TEMP 36.8; O2SAT 98
[2023-10-21 20:06] VITALS: BP 129/62; PULSE 70; RESP 17; TEMP 36.3; O2SAT 95
[2023-10-21] MEDS: ROSUVASTATIN 5 MG TABLET PO (20:07)
[2023-10-23 13:45] LABS: CA 19-9 512 U/mL (<34)
== END 2023-10-21 21:40 | disposition short-term general hospital (02) ==
LOC: ANHED 10-20 05:48 → ANH2MED 10-20 06:40
PROVIDERS: Internal Medicine Gastroenterology; Admitting Provider Internal Medicine; Emergency Provider Emergency Medicine; PCP Family Medicine; Visit Provider Family Medicine
DX: K86.89 Other specified diseases of pancreas (principal); R93.5 Abnormal findings on diagnostic imaging of other abdominal regions, including retroperitoneum; R10.13 Epigastric pain; K86.2 Cyst of pancreas; K21.9 Gastro-esophageal reflux disease without esophagitis; K44.9 Diaphragmatic hernia without obstruction or gangrene; R74.8 Abnormal levels of other serum enzymes; I83.90 Asymptomatic varicose veins of unspecified lower extremity; K29.70 Gastritis, unspecified, without bleeding; R05.9 Cough, unspecified; M54.2 Cervicalgia; E78.2 Mixed hyperlipidemia; Z79.1 Long term (current) use of non-steroidal anti-inflammatories (NSAID); Z85.3 Personal history of malignant neoplasm of breast; Z90.12 Acquired absence of left breast and nipple; Z92.21 Personal history of antineoplastic chemotherapy; Z79.899 Other long term (current) drug therapy
CPT/HCPCS: 36415; 74177; 74183; 76376; 80048; 80053; 83690; 83735; 84100; 85025; 86301; 87086; 87088; 96361; 96374; 96375; 99285; A9270; A9577; G0378; J2270; J2405; J7030; Q9967